=== PATIENT | female | born 1990 | race Caucasian/White ===

== ENCOUNTER → 2025-01-28 09:04 | Outpatient (REF) | payer BC, SELFPAY | LOC: PNTC 09:04 | PROVIDERS: ATTENDING PHYSICIAN Obstetrics & Gynecology | DX: O09.522 Supervision of elderly multigravida, second trimester (principal); R87.619 Unspecified abnormal cytological findings in specimens from cervix uteri; O46.91 Antepartum hemorrhage, unspecified, first trimester | CPT/HCPCS: 76811; 76817; 93976 ==